=== PATIENT | female | born 1965 ===

== ENCOUNTER 2017-08-27 07:18 | Day surgery (SDC) | payer MEDICAID ==
[2017-08-27 07:52] VITALS: BMI 25.8
[2017-08-27] MEDS ORDERED: Lactated Ringer's 500 ML IV ONE (08:05)
[2017-08-27] MEDS ORDERED: Lidocaine 2% MPF (5 ml) Inj ONE (09:15)
[2017-08-27] MEDS ORDERED: Propofol 10 mg/ml Inj (20 ML) ONE (09:15)
[2017-08-27 09:53] VITALS: BP 107/62; PULSE 54; RESP 18; TEMP 96.9; O2SAT 99
== END 2017-08-27 09:53 | disposition home or self-care (01) ==
LOC: H.ENDO 07:18 → EDSTATUS 09:15 → H.ENDO 09:53
PROVIDERS: ATTEND Internal Medicine Gastroenterology
DX: K29.50 Unspecified chronic gastritis without bleeding (principal); B96.81 Helicobacter pylori [H. pylori] as the cause of diseases classified elsewhere; K44.9 Diaphragmatic hernia without obstruction or gangrene; R10.13 Epigastric pain
CPT/HCPCS: 43239; 88305; J2704; J7120